=== PATIENT | male | born 1970 | race Caucasian/White ===

== ENCOUNTER → 2017-02-28 | Outpatient (CLI) | payer BC ==
[~2017-02-28] MED LIST: ALLOPURINOL300 MG PO; ASPIRIN325 MG PO; CELEBREX200 MG PO; DOXYCYCLINE100 MG PO; LIPITOR20 M1 PO; NORCO 5-325 TA1 EACH PO; [UNRECOGNIZED DRUG - OTHER] PO
== END | disposition disaster alternative care site (69) ==
LOC: GRAD 14:57
PROC: 0S9B3ZX Drainage of Left Hip Joint, Percutaneous Approach, Diagnostic (ICD-10-PCS; principal; 2017-02-28)
DX: M79.89 Other specified soft tissue disorders (principal)
CPT/HCPCS: J7030